=== PATIENT | male | born 1995 | race Caucasian/White ===

== ENCOUNTER 2017-04-30 17:25 | Emergency (ER) | payer OTHER ==
[2017-04-30] MEDS ORDERED: Lidocaine 2% 20 ML MDV INJECT ONE (17:49)
--- NOTE | 2017-04-30 17:57 | EDM.PDOC ---
ED HPI GENERAL MEDICAL PROBLEM - General Chief Complaint: Upper Extremity Injury/Pain Stated Complaint: LEFT FINGER INJURY Time Seen by Provider: 04/30/17 17:45 Source of Information: Reports: Patient History Limitations: Reports: No Limitations - History of Present Illness INITIAL COMMENTS - FREE TEXT/NARRATIVE: 21 yo male here from work with L hand long finger laceration. Tetanus is UTD. Onset: Today Onset Date: 04/30/17 Onset Time: 17:25 Duration: Minutes:, Constant Location: Reports: Upper Extremity, Left Quality: Reports: Burning Severity: Moderate Improves with: Reports: None Worsens with: Reports: Other (touching wound) Context: Reports: Other (work related laceration) Associated Symptoms: Reports: No Other Symptoms Review of Systems - Review of Systems Review Of Systems: See Below Constitutional: Reports: No Symptoms Musculoskeletal: Reports: No Symptoms Skin: Reports: Erythema, Wound (L long finger) Neurological: Reports: No Symptoms ED EXAM, GENERAL - Physical Exam Exam: See Below General Appearance: Alert, WD/WN, No Apparent Distress Neurological: Alert, Oriented, CN II-XII Intact, No Motor/Sensory Deficits Psychiatric: Normal Affect, Normal Mood Skin Exam: Warm, Dry, Normal Color, No Rash, Wound/Incision (flap laceration to distal L long finger, 2.5 x 1 cm) Lymphatic: No Adenopathy Course - Vital Signs Text/Narrative:: Digital block with 8 ml of 2% lidocaine. Cleaned with saline per nursing. Closure with simple sutures of 6-0 Ethilon. - Orders/Labs/Meds Meds: Medications Discontinued Medications Generic Name Dose Route Start Last Admin Trade Name Brandon PRN Reason Stop Dose Admin Lidocaine HCl 10 ml 04/30/17 17:49 Xylocaine 2% INJECT 04/30/17 17:50 ONETIME ONE Departure - Departure Time of Disposition: 18:35 Disposition: Home, Self-Care 01 Condition: Good Clinical Impression: Laceration of finger Qualifiers: Encounter type: initial encounter Finger: middle finger Damage to nail status: without damage Foreign body presence: without foreign body Laterality: left Qualified Code(s): S61.213A - Laceration without foreign body of left middle finger without damage to nail, initial encounter - Discharge Information
[2017-04-30 20:02] VITALS: BP 122/70
== END 2017-04-30 18:40 | disposition home or self-care (01) ==
LOC: FB.ED 17:25
DX: S61.213A Laceration without foreign body of left middle finger without damage to nail, initial encounter (principal); Y99.0 Civilian activity done for income or pay; W26.0XXA Contact with knife, initial encounter
CPT/HCPCS: 12001; 99282; A4217